=== PATIENT | female | born 1995 | race Caucasian/White ===

== ENCOUNTER 2018-08-20 00:50 | Emergency (ER) | payer BC ==
[~2018-08-20] VITALS: Ht 167.6 cm; Wt 66.7 kg
--- NOTE | 2018-08-20 00:50 | NUR ---
BIB EMS for ETOH, pt was found passed out in a bathroom with emesis next to her. Pt states she drank "a lot" and was unable to ambulate upon EMS arrival.
[2018-08-20] MEDS ORDERED: oral contraceptive PO (00:59)
--- NOTE | 2018-08-20 01:05 | NUR ---
Dr. Lujan at bedside to evaluate pt.
--- NOTE | 2018-08-20 01:06 | NUR ---
Pt's boyfriend to bedside.
--- NOTE | 2018-08-20 01:38 | NUR ---
Pt sleeping on gurney, remains on monitors. VSS.
[2018-08-20 02:16] VITALS: BP 97/63
--- NOTE | 2018-08-20 02:17 | NUR ---
Pt sleeping on gurney, remains on monitors. VSS. Boyfriend remains at bedside.
--- NOTE | 2018-08-20 02:20 | NUR ---
Pt's boyfriend up to nurse's station stating that the pt feels ready to go home.
--- NOTE | 2018-08-20 02:25 | NUR ---
This RN to pt's bedside with water and crackers, pt sleeping on gurney, wakes up to verbal stimulus. Pt asked if she feels ready to leave and pt answers that she does. Pt given water, drank a few sips and denied nausea. Pt up to edge of bed and able to stand with standby assist. Upon standing, pt fixed her pants and then asked to lay back down and said she does not feel ready to walk. Pt hooked back up to monitors and pt and boyfriend advised that this RN will be back in to check on her for readiness to leave again shortly.
--- NOTE | 2018-08-20 03:02 | NUR ---
PT BEDSIDE REPORT FROM JULIA TANG. THIS RN TO ASSUME CARE OF PT.
--- NOTE | 2018-08-20 03:02 | NUR ---
SBAR report given to Nick TANG.
== END 2018-08-20 03:56 | disposition home or self-care (01) ==
LOC: ED 03:50
DX: F10.120 Alcohol abuse with intoxication, uncomplicated (principal)
CPT/HCPCS: 99283